=== PATIENT | female | born 1955 | race American Indian/Alaskan Native ===

== ENCOUNTER 2017-10-04 10:40 | Emergency (ER) | payer SELFPAY ==
[2017-10-04 10:52] VITALS: BP 119/71
[2017-10-04] MEDS ORDERED: ZOFRAN ODT PO ONE (12:27)
[2017-10-04 13:19] LABS: Bacteria,Urine 1+ /HPF (Negative); Bilirubin,Urine NEG (Negative); Blood,Urine SM (Negative); Color,Urine Amber (Yellow); Hyaline Casts,Urine 5 /LPF; Mucus,Urine 2+ /HPF
--- NOTE | 2017-10-04 13:37 | Emergency Department Report ---
ED General Adult HPI - General Chief complaint: Weakness Stated complaint: CP/HTN Time Seen by Provider: 10/04/17 12:20 Source: patient, family Mode of arrival: Ambulatory Limitations: No Limitations - History of Present Illness Initial comments: Patient is a 62-year-old female who is complaining of 2-3 days of hematuria. Patient states that she's also has nausea with it with headache. Patient states she's had several episodes where she felt lightheaded. Patient states the vomiting was yesterday and today she just feels slightly nauseous. Patient denies any fevers chills cough congestion or abdominal pain at this time. - Related Data Previous Rx's Medication Instructions Recorded Last Taken Type Ciprofloxacin HCl [Cipro] 500 mg PO BID #14 tablet 10/04/17 Unknown Rx Ondansetron [Zofran Odt] 4 mg PO Q8HR PRN #10 tab.rapdis 10/04/17 Unknown Rx Allergies Allergy/AdvReac Type Severity Reaction Status Date / Time No Known Allergies Allergy Unverified 10/04/17 10:52 ED Review of Systems ROS: Stated complaint: CP/HTN Other details as noted in HPI Comment: All other systems reviewed and negative ED Past Medical Hx - Social History Smoking Status: Never Smoker Substance Use Type: None - Medications Home Medications: Home Medications Medication Instructions Recorded Confirmed Last Taken Type Ciprofloxacin HCl [Cipro] 500 mg PO BID #14 tablet 10/04/17 Unknown Rx Ondansetron [Zofran Odt] 4 mg PO Q8HR PRN #10 tab.rapdis 10/04/17 Unknown Rx ED Physical Exam - General Limitations: No Limitations General appearance: alert, in no apparent distress - Head Head exam: Present: atraumatic, normocephalic - Eye Eye exam: Present: normal appearance - ENT ENT exam: Present: mucous membranes moist - Neck Neck exam: Present: normal inspection - Respiratory Respiratory exam: Present: normal lung sounds bilaterally. Absent: respiratory distress, wheezes, rales, rhonchi - Cardiovascular Cardiovascular Exam: Present: regular rate, normal rhythm. Absent: systolic murmur, diastolic murmur, rubs, gallop - GI/Abdominal GI/Abdominal exam: Present: soft, normal bowel sounds. Absent: distended, tenderness, guarding, rebound - Extremities Exam Extremities exam: Present: normal inspection - Back Exam Back exam: Present: normal inspection - Neurological Exam Neurological exam: Present: alert, oriented X3 - Psychiatric Psychiatric exam: Present: normal affect, normal mood - Skin Skin exam: Present: warm, dry, intact, normal color. Absent: rash ED Course Vital Signs 10/04/17 10:48 Temperature 99.2 F Pulse Rate 63 Respiratory 16 Rate Blood Pressure 119/71 O2 Sat by Pulse 96 Oximetry ED Medical Decision Making - Lab Data Lab Results 10/04/17 10/04/17 Range/Units 12:47 12:47 POC Glucose 104 (70-105) Urine Color Cindy (Yellow) Urine Turbidity Clear (Clear) Urine pH 5.0 (5.0-7.0) Ur Specific [place] 1.021 (1.003-1.030) Urine Protein 100 mg/dl (Negative) mg/dL Urine Glucose (UA) Neg (Negative) mg/dL Urine Ketones Tr (Negative) mg/dL Urine Blood Sm (Negative) Urine Nitrite Neg (Negative) Urine Bilirubin Neg (Negative) Urine Urobilinogen 2.0 (<2.0) mg/dL Ur Leukocyte Esterase Neg (Negative) Urine WBC (Auto) 47.0 H (0.0-6.0) /HPF Urine RBC (Auto) 9.0 (0.0-6.0) /HPF U Epithel Cells (Auto) 21.0 H (0-13.0) /HPF Urine Bacteria (Auto) 1+ (Negative) /HPF Hyaline Casts 5 /LPF Urine Mucus 2+ /HPF - Medical Decision Making She'll be treated for interstitial cystitis and be discharged home. Critical care attestation.: If time is entered above; I have spent that time in minutes in the direct care of this critically ill patient, excluding procedure time. ED Disposition Clinical Impression: Acute cystitis Qualifiers: Hematuria presence: with hematuria Qualified Code(s): N30.01 - Acute cystitis with hematuria Disposition: TO HOME OR SELFCARE Is pt being admited?: No Does the pt Need Aspirin: No Condition: Stable Instructions: Urinary Tract Infection in Women (ED) Referrals: [facility] [Other] - 3-5 Days
== END 2017-10-04 13:47 | disposition home or self-care (01) ==
LOC: ED 10:40
DX: N30.01 Acute cystitis with hematuria (principal)
CPT/HCPCS: 81001; 82962; 99283; Q0162

== ENCOUNTER 2018-10-21 13:12 | Emergency (ER) | payer OTHER ==
--- NOTE | 2018-10-21 13:25 | Event Note ---
ED Screening Note Date of service: 10/21/18 Time: 13:24 ED Screening Note: 63 y/o female comes in for abscess behind right ear and upper lip between nose and lip times 3 weeks. This initial assessment/diagnostic orders/clinical plan/treatment(s) is/are subject to change based on patients health status, clinical progression and re- assessment by fellow clinical providers in the ED. Further treatment and workup at subsequent clinical providers discretion. Patient/guardian urged not to elope from the ED as their condition may be serious if not clinically assessed and managed. Initial orders include:
--- NOTE | 2018-10-21 16:01 | Emergency Department Report ---
ED Rash HPI - HPI Chief Complaint: Skin/Abscess/Foreign Body Stated Complaint: RT EAR PAIN Time Seen by Provider: 10/21/18 15:49 Other History: Patient reports red pimple under her left nostril. Reports she wanted it evaluated for infection. Reports pimple occurred today ED Review of Systems ROS: Stated complaint: RT EAR PAIN Other details as noted in HPI Other: GENERAL: No weight change, fatigue, weakness, fever, chills, or night sweats SKIN: Pimple under left nostril, redness, mild tenderness. HEAD: No trauma, headache, or visual changes EYES: No blurriness, tearing, itching, acute visual loss, conjunctival discoloration, or scleral icterus EARS: No hearing loss, tinnitus, vertigo, or earache NOSE: No rhinorrhea, stuffiness, sneezing, itching, or epistaxis MOUTH: No bleeding gums, hoarseness, sore throat, or swelling CARDIAC: No new murmur, chest pain, palpitations, dyspnea on exertion, orthopnea, PND, or edema RESPIRATORY: No shortness of breath, wheeze, cough, sputum production, hemoptysis, pneumonia, asthma, bronchitis, or emphysema GI: No change in appetite, nausea, vomiting, dysphagia, change in bowel frequency, diarrhea, constipation, bleeding, hematemesis, melena, hematochezia, or abdominal pain URINARY: No frequency, urgency, polyuria, dysuria, hematuria, or incontinence MUSCULOSKELETAL: No muscle weakness, joint stiffness, decrease in range of motion, redness, swelling NEUROLOGIC: No loss of sensation, numbness, tingling, tremors, weakness, paralysis, seizures HEMATOLOGIC: No anemia, easy bruising, bleeding, petechiae, or purpura ENDOCRINE: No hot or cold intolerance, sweating, polyuria, polydipsia or, polyphagia no thyroid problems PSYCHIATRIC: No change in mood, no anxiety, no depression ED Past Medical Hx - Past Medical History Hx Hypertension: Yes Additional medical history: Endocrine problems - Surgical History Past Surgical History?: No - Social History Smoking Status: Never Smoker Substance Use Type: None - Medications Home Medications: Home Medications Medication Instructions Recorded Confirmed Last Taken Type Ciprofloxacin HCl [Cipro] 500 mg PO BID #14 tablet 10/04/17 Unknown Rx Ondansetron [Zofran Odt] 4 mg PO Q8HR PRN #10 tab.rapdis 10/04/17 Unknown Rx Rash Exam - Exam General: Vital signs noted. No distress. Alert and acting appropriately. Lungs: No Labored Respirations, No Retractions Skin: Yes Other (Small less than 0.5 cm redness under left nostril without discharge, pus, or surrounding erythema. ) Other: Positive: Neurologic Normal, Musculoskeletal Normal ED Course Vital Signs 10/21/18 13:20 Temperature 98.7 F Pulse Rate 55 L Respiratory 18 Rate Blood Pressure 198/79 O2 Sat by Pulse 100 Oximetry ED Medical Decision Making - Medical Decision Making Patient comfortable. Plan discharge with outpatient follow up. Patient agrees with plan and will return if symptoms worsen. Critical care attestation.: If time is entered above; I have spent that time in minutes in the direct care of this critically ill patient, excluding procedure time. ED Disposition Clinical Impression: Acne Qualifiers: Acne type: unspecified acne Qualified Code(s): L70.9 - Acne, unspecified Disposition: - TO HOME OR SELFCARE Is pt being admited?: No Condition: Stable Instructions: Acne (ED) Referrals: ROHAN DOUGHERTY MD [Primary Care Provider] - 2-3 Days Time of Disposition: 16:01
[2018-10-21 16:17] VITALS: BP 197/84
== END 2018-10-21 16:17 | disposition home or self-care (01) ==
LOC: ED 13:12
DX: L70.9 Acne, unspecified (principal); I10 Essential (primary) hypertension; Z79.899 Other long term (current) drug therapy
CPT/HCPCS: 99282